=== PATIENT | male | born 1995 | race Hispanic/Latino ===

== ENCOUNTER 2023-02-16 03:47 | Emergency (ER) | payer SELFPAY ==
[2023-02-16] MEDS ORDERED: NA CHLORIDE 0.9% 1,000 ML ONE (05:02)
[2023-02-16] MEDS ORDERED: DICYCLOMINE HCL 20 MG/2 ML AMP IM ONE (05:02)
[2023-02-16] MEDS ORDERED: MORPHINE 4 MG/ML SYR ONE (05:02)
[2023-02-16] MEDS ORDERED: KETOROLAC 30 MG/ML INJ ONE (05:02)
[2023-02-16] MEDS ORDERED: ONDANSETRON 4 MG/2 ML VIAL ONE (05:02)
[2023-02-16 05:47] LABS: Hematocrit 41.8 % (39.6-49.0); Lymphocytes % 13.9 % (15.3-44.8); MCV 89.6 fL (80-100); MPV 8.2 fL (7.6-11.3); RBC Red Blood Cell Count 4.66 M/uL (4.33-5.43)
[2023-02-16 05:52] LABS: Albumin 3.4 g/dL (3.4-5.0); Bilirubin Total 0.4 mg/dL (0.2-1.0); Potassium 3.8 mEq/L (3.5-5.1); Protein, Total 7.3 g/dL (6.4-8.2)
--- NOTE | 2023-02-16 07:17 | RAD REPORT ---
EXAM DESCRIPTION: US - Abdomen Exam Limited - 02/16/2023 7:00 am CLINICAL HISTORY: ABD PAIN COMPARISON: <Comparisons> FINDINGS: The gallbladder demonstrates several shadowing gallstones. No pericholecystic fluid or gal lbladder wall thickening. The common bile duct is normal measuring 5 mm. The liver demonstrates no findings of intrahepatic biliary dilatation. IMPRESSION: Cholelithiasis. Upper limit of normal for age common duct. MRCP may be useful for further evaluation.
--- NOTE | 2023-02-16 07:35 | ER ---
Nurse's Notes [facility] Name: Virginia Brooks Age: 27 yrs Sex: Male : 1995 Arrival Date: 02/16/2023 Time: 03:47 Bed 20 Private MD: Diagnosis: Cholelithiasis, without acute cholecystitis. Biliary colic Presentation: 02/16 04:40 Chief complaint: Patient states: UPPER ABD PAIN AND NAUSEA STARTED 2 HRS AGO. jj7 Coronavirus screen: At this time, the client does not indicate any symptoms associated with coronavirus-19. Ebola Screen: No symptoms or risks identified at this time. 04:40 Method Of Arrival: Ambulatory jj7 06:57 Initial Sepsis Screen: Does the patient meet any 2 criteria? No. Patient's initial as6 sepsis screen is negative. Does the patient have a suspected source of infection? No. Patient's initial sepsis screen is negative. Risk Assessment: Do you want to hurt yourself or someone else? Patient reports no desire to harm self or others. Onset of symptoms was February 16, 2023. 06:57 Acuity: ALEXA 3 as6 Triage Assessment: 04:40 General: Appears in no apparent distress. uncomfortable, Behavior is cooperative, jj7 appropriate for age. Pain: Complains of pain in abdomen Pain radiates to right upper quadrant. GI: Reports upper abdominal pain, nausea. Historical: - Allergies: 08:13 No Known Allergies; ph - PMHx: 08:13 None; ph - Immunization history:: Adult Immunizations unknown. - Social history:: Patient/guardian denies using alcohol, street drugs, IV drugs, caffeine, over the counter diet medications, tobacco products, Smoking status: unknown. - Family history:: not pertinent. Screenin:03 [facility] ED Fall Risk Assessment (Adult) History of falling in the last 3 months, jj7 including since admission No falls in past 3 months (0 pts) Confusion or Disorientation No (0 pts) Intoxicated or Sedated No (0 pts) Impaired Gait No (0 pts) Mobility Assist Device Used No (0 pt) Altered Elimination No (0 pt) Score/Fall Risk Level 0 - 2 = Low Risk Maintained a safe environment. Abuse screen: Denies threats or abuse. Nutritional screening: No deficits noted. Tuberculosis screening: No symptoms or risk factors identified. Assessment: 04:45 Reassessment: SEE TRIAGE ASSESSMENT. jj7 07:12 Reassessment: PT REPORT GIVEN TO MARCI ALANIZ. jj7 08:13 Reassessment: Patient appears in no apparent distress at this time. Patient and/or ph family updated on plan of care and expected duration. Pain level reassessed. Patient is alert, oriented x 3, equal unlabored respirations, skin warm/dry/pink. Pt d/c home w/ SO, instructed to follow up w/ surgeon. Vital Signs: 04:40 BP 124 / 55; Pulse 62; Resp 20; Temp 98; Pulse Ox 99% ; Pain 8/10; jj7 05:40 BP 90 / 64; Pulse 63; Resp 17; Pulse Ox 96% ; jj7 06:40 BP 116 / 73; Pulse 56; Resp 17; Pulse Ox 94% ; jj7 04:40 Pain Scale: Adult j7 ED Course: 03:57 Patient arrived in ED. ag3 04:39 Britney Scott RN is Primary Nurse. jj7 04:40 Devan Fleming MD is Attending Physician. sp4 04:40 Arm band placed on right wrist. Patient placed in an exam room, on a stretcher. jj7 05:03 Patient has correct armband on for positive identification. Bed in low position. Call j7 light in reach. Side rails up X2. Adult w/ patient. 05:03 No provider procedures requiring assistance completed. jj7 05:05 Inserted saline lock: 20 gauge in right antecubital area, using aseptic technique. jj7 Blood collected. 05:57 Warm blanket given. jj7 06:37 CT Abd/Pelvis - IV Contrast Only In Process Unspecified. EDMS 06:57 Triage completed. as6 07:02 Abdomen Limited US In Process Unspecified. EDMS 07:34 Wil Reyes MD is Referral Physician. sp4 08:03 Marci Sanchez RN is Primary Nurse. ph 08:14 IV discontinued, intact, bleeding controlled, No redness/swelling at site. Pressure ph dressing applied. Administered Medications: 05:08 Drug: NS 0.9% IV 1000 ml Route: IV; Rate: 1 bolus; Site: right antecubital; jj7 05:08 Drug: morphine IVP or IV 4 mg Route: IVP; Infused Over: 4 mins; Site: right antecubital;jj7 05:08 Drug: Ketorolac IVP 30 mg Route: IVP; Site: right antecubital; jj7 05:14 Drug: Ondansetron IVP 4 mg Route: IVP; Site: right antecubital; jj7 05:15 Drug: Dicyclomine IM 20 mg Route: IM; Site: right deltoid; jj7 Outcome: 07:35 Discharge ordered by MD. gonzales 08:14 Discharged to home ambulatory, with significant other. ph 08:14 Condition: good 08:14 Discharge instructions given to patient, Instructed on discharge instructions, follow up and referral plans. medication usage, Demonstrated understanding of instructions, follow-up care, medications, Prescriptions given X 2. 08:14 Patient left the ED. ph Signatures: Dispatcher [employer] EDMS Marci Sanchez RN RN ph Tenisha Calloway3 Price Foss RN RN as6 Britney Scott RN RN jj7 Devan Fleming MD MD sp4
--- NOTE | 2023-02-16 07:35 | EDPHYS ---
Physician Documentation [facility] Name: Virginia Brooks Age: 27 yrs Sex: Male : 1995 Arrival Date: 02/16/2023 Time: 03:47 Bed 20 Private MD: ED Physician Dvean Fleming HPI: 02/16 04:40 This 27 yrs old Male presents to ER via Unassigned with complaints of sp4 Abdominal Pain. 04:45 Acute onset abdominal pain several hours ago upper abdomen in the right abdomen. sp4 Patient states he developed acute onset abdominal pain that is mostly in the upper abdomen associated with nausea without diarrhea or constipation. Patient has a history of gastric sleeve surgery but no other surgeries. Patient describes pain as moderate to severe. Pain is constant and increasing.. Historical: - Allergies: 08:13 No Known Allergies; ph - PMHx: 08:13 None; ph - Immunization history:: Adult Immunizations unknown. - Social history:: Patient/guardian denies using alcohol, street drugs, IV drugs, caffeine, over the counter diet medications, tobacco products, Smoking status: unknown. - Family history:: not pertinent. ROS: 04:45 Constitutional: Negative for fever, chills, and weight loss, Eyes: Negative for injury, sp4 pain, redness, and discharge, ENT: Negative for injury, pain, and discharge, Neck: Negative for injury, pain, and swelling, Cardiovascular: Negative for chest pain, palpitations, and edema, Respiratory: Negative for shortness of breath, cough, wheezing, and pleuritic chest pain, Abdomen/GI: Negative for nausea, vomiting, diarrhea, and constipation, positive for abdominal pain Back: Negative for injury and pain, : Negative for injury, bleeding, discharge, and swelling, MS/Extremity: Negative for injury and deformity, Skin: Negative for injury, rash, and discoloration, Neuro: Negative for headache, weakness, numbness, tingling, and seizure, Psych: Negative for depression, anxiety, Allergy/Immunology: Negative for hives, rash, and allergies Endocrine: Negative for neck swelling, polydipsia, polyuria, polyphagia, and weight changes Hematologic/Lymphatic: Negative for swollen nodes, abnormal bleeding, and unusual bruising Exam: 04:45 Constitutional: This is a well developed, well nourished patient who is awake, alert, sp4 and in no acute distress. Head/Face: Normocephalic, atraumatic. Eyes: Pupils equal round and reactive to light, extra-ocular motions intact. Lids and lashes normal. Conjunctiva and sclera are not injected. Cornea within normal limits. Periorbital areas with no swelling, redness, or edema. ENT: Nares patent. No nasal discharge, no septal abnormalities noted. Tympanic membranes are normal and external auditory canals are clear. Oropharynx with no redness, swelling, or masses, exudates, or evidence of obstruction, uvula midline. Mucous membranes moist. Neck: Trachea midline, no thyromegaly or masses palpated, and no cervical lymphadenopathy. Supple, full range of motion without nuchal rigidity, or vertebral point tenderness. No Meningismus. Chest/axilla: Normal chest wall appearance and motion. Nontender with no deformity. No lesions are appreciated. Cardiovascular: Regular rate and rhythm with a normal S1 and S2. No gallops, murmurs, or rubs. Normal PMI, no JVD. No pulse deficits. Respiratory: Lungs have equal breath sounds bilaterally, clear to auscultation and percussion. No rales, rhonchi or wheezes noted. No increased work of breathing, no retractions or nasal flaring. Abdomen/GI: Soft, obese abdomen, moderate to severe tenderness epigastric right upper quadrant location, normal active bowel sounds, positive rebound, nondistended abdomen no rigidity Back: No spinal tenderness. No costovertebral tenderness. Skin: Warm, dry with normal turgor. Normal color with no rashes, no lesions, and no evidence of cellulitis. MS/ Extremity: Pulses equal, no cyanosis. Neurovascular intact. Full, normal range of motion. Neuro: Awake and alert, GCS 15, oriented to person, place, time, and situation. Cranial nerves II-XII grossly intact. Motor strength 5/5 in all extremities. Sensory grossly intact. Psych: Awake, alert, with orientation to person, place and time. Behavior, mood, and affect are within normal limits Vital Signs: 04:40 BP 124 / 55; Pulse 62; Resp 20; Temp 98; Pulse Ox 99% ; Pain 8/10; jj7 05:40 BP 90 / 64; Pulse 63; Resp 17; Pulse Ox 96% ; jj7 06:40 BP 116 / 73; Pulse 56; Resp 17; Pulse Ox 94% ; jj7 04:40 Pain Scale: Adult j7 MDM: 04:45 Patient medically screened. sp4 07:30 Differential Diagnosis sepsis, Appendicitis, acute cholecystitis. Data reviewed: vital sp4 signs, nurses notes, lab test result(s), amylase and lipase, CBC, drug level(s), electrolytes, hepatic panel, radiologic studies, CT scan, ultrasound. Consideration of Admission/Observation Escalation of care including admission/observation considered. ED course: Patient CT revealed no acute abdominopelvic findings, revealed hepatomegaly, distended gallbladder, sleeve gastrectomy changes, normal appendix. Patient had mild elevation in AST, ALT, and essentially normal alk phos, normal lipase. Normal bilirubin,. Ultrasound revealed cholelithiasis, several shadowing gallstones, no pericholecystic fluid, no gallbladder wall thickening, and bile duct 5 mm. Patient improved after medications in ER, patient will be advised to see general surgeon for outpatient laparoscopic cholecystectomy. . 02/16 04:47 Order name: COVID-19 SARS RT PCR sp4 02/16 05:32 Order name: Comprehensive Metabolic Panel; Complete Time: 07:21 EDMS 02/16 05:32 Order name: Lipase; Complete Time: 07:21 EDMS 02/16 05:32 Order name: CBC with Automated Diff; Complete Time: 07:21 EDMS 02/16 05:32 Order name: SARS-COV-2 RT PCR; Complete Time: 07:21 EDMS 02/16 04:48 Order name: Abdomen Limited US; Complete Time: 07:21 sp4 02/16 04:48 Order name: CT Abd/Pelvis - IV Contrast Only sp4 02/16 04:48 Order name: IV Saline Lock; Complete Time: 05:13 sp4 02/16 04:48 Order name: Labs collected and sent; Complete Time: 05:13 sp4 Administered Medications: 05:08 Drug: NS 0.9% IV 1000 ml Route: IV; Rate: 1 bolus; Site: right antecubital; j7 05:08 Drug: morphine IVP or IV 4 mg Route: IVP; Infused Over: 4 mins; Site: right antecubital;jj7 05:08 Drug: Ketorolac IVP 30 mg Route: IVP; Site: right antecubital; jj7 05:14 Drug: Ondansetron IVP 4 mg Route: IVP; Site: right antecubital; jj7 05:15 Drug: Dicyclomine IM 20 mg Route: IM; Site: right deltoid; jj7 Disposition Summary: 02/16/23 07:35 Discharge Ordered Location: Home sp4 Condition: Stable sp4 Diagnosis - Cholelithiasis, without acute cholecystitis. Biliary colic sp4 Followup: sp4 - With: Wil Reyes MD - When: 7 - 10 days - Reason: Recheck today's complaints Discharge Instructions: - Discharge Summary Sheet sp4 - Cholelithiasis, [id number] sp4 Forms: - Family Work Release ph - Thank You Letter ph - Medication Reconciliation Form sp4 Prescriptions: - naproxen sodium 500 mg Oral Tablet, ER Multiphase 24 hr - take 1 tablet by ORAL route every 12 hours PRN pain; 30 tablet; Refills: 0, sp4 Product Selection Permitted - Zofran 4 mg Oral Tablet - take 1 tablet by ORAL route every 6 hours As needed PRN nausea; 30 tablet; sp4 Refills: 0, Product Selection Permitted Signatures: Dispatcher [employer] EDMarci Moulton RN RN Britney Brice RN RN jj7 Devan Fleming MD MD sp4 Corrections: (The following items were deleted from the chart) 06:09 05:29 Abdomen ordered. EDMS EDMS 06:30 06:05 CBC+H.LAB.BRZ ordered. EDMS EDMS 06:30 06:05 COMPREHENSIVE METABOLIC PANEL+C.LAB.BRZ ordered. EDMS EDMS 06:30 06:05 LIPASE+C.LAB.BRZ ordered. EDMS EDMS
[2023-02-16 08:37] VITALS: TEMP 98
[2023-02-16 08:42] VITALS: BP 116/73; O2SAT 94
--- NOTE | 2023-02-16 16:00 | RAD REPORT ---
EXAM DESCRIPTION: Abdomen Pelvis W Contrast CLINICAL HISTORY: 27 years Male ABD PAIN COMPARISON: None TECHNIQUE: CT of the abdomen and pelvis with intravenous contrast. All CT scans at this facility use dose modulation, iterative reconstruction, and/or weight based dosi ng when appropriate to reduce radiation dose to as low as reasonably achievable. FINDINGS: Lower thorax: Bibasilar scarring versus atelectasis. Abdomen: Stomach: Sleeve gastrectomy changes. Liver: No focal lesions. Enlarged. No intrahepatic ductal distention. Gallbladder: Moderately distended. Pancreas: Within normal limits Spleen: Within normal limits Right kidney: No hydronephrosis. No focal lesion. Left kidney: No hydronephrosis. No focal lesion. Adrenal glands: Within normal limits Vascular structures: Within normal limits Nodes: No lymphadenopathy by size criteria Pelvis: Small bowel: No significant distention. Appendix: Within normal limits Colon: No distention or acute pericolonic edema. Peritoneum: No free intraperitoneal fluid or air. Bones: No acute bone findings. Bladder: Underdistended, limiting evaluation. Reproductive organs: No acute findings. IMPRESSION: 1. No acute abdominopelvic findings. 2. Hepatomegaly. Electronically signed by: Randall Walker MD 02/16/2023 6:48 AM CDT Due to temporary technical issues with the PACS/Fluency reporting system, reports are being signed by the in house radiologists without review as a courtesy to insure prompt reporting. The interpreting radiologist is fully responsible for the content of the report.
== END 2023-02-16 08:14 | disposition home or self-care (01) ==
LOC: ER 03:47
DX: K80.20 Calculus of gallbladder without cholecystitis without obstruction (principal); K80.50 Calculus of bile duct without cholangitis or cholecystitis without obstruction
CPT/HCPCS: 36415; 74177; 76705; 80053; 83690; 85025; 96372; 96374; 96375; 99284; J0500; J2405; J7030; Q9967; U0003

== ENCOUNTER 2023-03-10 15:26 | Emergency (ER) | payer SELFPAY ==
--- OUTSIDE RECORDS SUMMARY | 2023-03-10 15:28 | XMS REPORT | Continuity of Care Document ---
:1995 Author Organization [facility] t Address [address] [place] [id number] Care Team Providers Name Role Phone Unavailable Unavailable Unavailable Problems This patient has no known problems. Allergies, Adverse Reactions, Alerts This patient has no known allergies or adverse reactions. Medications This patient has no known medications. Procedures This patient has no known procedures. Encounters Start End Encounter Admission Attending Care Care Encounter Source Date/Time Date/Time Type Type Clinicians Facility Department ID 2022-08-26 2022-08-26 Outpatient [facility] [id number] Pili Carcamo 14:26:13 14:26:[address] [place] [address] Results This patient has no known results.
[2023-03-10 16:48] LABS: Hematocrit 45.5 % (39.6-49.0); Lymphocytes % 7.1 % (15.3-44.8); MCV 89.5 fL (80-100); MPV 7.8 fL (7.6-11.3); RBC Red Blood Cell Count 5.08 M/uL (4.33-5.43)
[2023-03-10 17:02] LABS: Albumin 3.8 g/dL (3.4-5.0); Bilirubin Total 1.3 mg/dL (0.2-1.0); Potassium 3.7 mEq/L (3.5-5.1)
--- NOTE | 2023-03-10 17:21 | RAD REPORT ---
EXAM DESCRIPTION: US - Abdomen Exam Limited - 03/10/2023 5:01 pm CLINICAL HISTORY: ruq pain COMPARISON: Abdomen Exam Limited dated 02/16/2023 TECHNIQUE: Sonographic grayscale and color flow images of the right upper abdominal quadrant were obtained. FINDINGS: The gallbladder demonstrates layering sludge and small echogenic calculi. No pericholecyst ic fluid or gallbladder wall thickening. The common bile duct is prominent, measuring up to 6 mm. The liver demonstrates no findings of intrahepatic biliary dilatation. IMPRESSION: Mildly prominent common bile duct, up to 6 millimeter in caliber. Gallstones and sludge. No sonographic findings to suggest acute cholecystitis.
[2023-03-10] MEDS ORDERED: CEFTRIAXONE 1000 MG/VIAL ONE (17:51)
[2023-03-10] MEDS ORDERED: METRONIDAZOLE 500mg IVPB 500 MG/100 ML BAG IV ONE (17:51)
--- NOTE | 2023-03-10 18:04 | EDPHYS ---
Physician Documentation [facility] Name: Virginia Brooks Age: 27 yrs Sex: Male : 1995 Arrival Date: 03/10/2023 Time: 15:26 Bed 16 Private MD: ED Physician Nate Rizvi HPI: 03/10 15:43 This 27 yrs old Male presents to ER via Unassigned with complaints of bs3 Abdominal Pain. 15:43 27-year-old male history of gallstones presents with epigastric pain for approximately bs3 3 days it did get better just prior to arrival however it has been pretty persistent over the last 3 days he notes similar pain earlier this month when he was diagnosed with gallstones he has not been able to follow-up with the surgeon due to lack of insurance he denies fevers chills cough shortness of breath he was taking Naprosyn and Advil for the pain it is sharp pain it radiates toward both sides of his upper abdomen does not radiate to his back or lower abdomen its not ripping or tearing. Historical: - Allergies: 15:44 No Known Allergies; mb9 - Home Meds: 15:44 None [Active]; mb9 - PMHx: 15:44 Gallstones; mb9 - PSHx: 15:44 Gastric Sleeve; mb9 - Immunization history:: Adult Immunizations up to date. - Social history:: Smoking status: Patient denies any tobacco usage or history of. ROS: 15:43 Constitutional: Negative for fever, chills bs3 15:43 All other systems are negative. Exam: 15:43 Constitutional: This is a well developed, well nourished patient who is awake, alert, bs3 and in no acute distress. Head/Face: Normocephalic, atraumatic. Eyes: Pupils equal round and reactive to light, extra-ocular motions intact. Lids and lashes normal. ENT: mmm, no posterior phyarngeal erythema Neck: Trachea midline, no thyromegaly, no neck stiffness Chest/axilla: Normal chest wall appearance and motion. Nontender with no deformity. No lesions are appreciated. Cardiovascular: Regular rate and rhythm with a normal S1 and S2. symmetric pulses in upper extremities Respiratory: Lungs have equal breath sounds bilaterally, clear to auscultation, no respiratory distress Abdomen/GI: Soft, non-tender, no rebound or guarding Skin: Warm, dry with normal turgor. Normal color with no rashes, no lesions, and no evidence of cellulitis. MS/ Extremity: Pulses equal, no cyanosis. Neurovascular intact. Full, normal range of motion. Neuro: Awake and alert, GCS 15, oriented to person, place, time, and situation. Cranial nerves II-XII grossly intact. Motor strength 5/5 in all extremities. Sensory grossly intact. Vital Signs: 15:42 BP 117 / 75; Pulse 76; Resp 18; Temp 97.9; Pulse Ox 100% ; Weight 140.16 kg; Height 5 mb9 ft. 10 in. ; Pain 0/10; 20:32 BP 107 / 71; Pulse 61; Resp 18 S; Pulse Ox 100% on R/A; as6 15:42 Body Mass Index 44.34 (140.16 kg, 177.8 cm) mb9 15:42 Pain Scale: Adult mb9 MDM: 15:35 Patient medically screened. bs3 15:43 Data reviewed: vital signs, nurses notes. ED course: Patient with epigastric pain for 3 bs3 days now improving will evaluate for pancreatitis, cholecystitis, possible gastritis, peptic ulcer disease I reviewed his ultrasound from 02/16/2023 which does show gallstones without wall thickening we will repeat ultrasound patient does not want pain medicine at this point in time. 17:47 ED course: Patient with cholelithiasis and new elevated LFTs with a CBD of 6 I bs3 discussed with Dr. Mcgovern who recommended patient needs ERCP or likely ERCP I reached out to Dr. Donis who cannot do this procedure and recommended transfer, will start on antibiotics and initiate transfer. 18:40 ED course: Dr. Parisi from [facility] accepted pt. bs3 03/10 15:43 Order name: CBC with Diff; Complete Time: 17:33 bs3 03/10 15:43 Order name: CMP; Complete Time: 17:33 bs3 03/10 15:43 Order name: Lipase; Complete Time: 17:33 bs3 03/10 18:05 Order name: SARS RAPID sp 03/10 15:43 Order name: US Abdomen Limited; Complete Time: 17:33 bs3 03/10 15:43 Order name: IV Saline Lock; Complete Time: 16:37 bs3 03/10 15:43 Order name: Labs collected and sent; Complete Time: 16:37 bs3 Administered Medications: 17:45 Drug: Rocephin IV 1 grams Route: IV; Rate: 1 bolus; Site: left antecubital; ko1 18:29 Follow up: Response: No adverse reaction ko1 18:30 Follow up: IV Status: Completed infusion; IV Intake: 10ml ko1 18:07 Drug: metroNIDAZOLE IVPB 500 mg Volume: 100 ml; Route: IVPB; Rate: 200 ml/hr; Infused ko1 Over: 30 mins; Site: left antecubital; 18:30 Follow up: IV Status: Completed infusion; IV Intake: 100ml ko1 18:09 Drug: NS 0.9% IV 1000 ml Route: IV; Rate: 125 ml/hr; Site: left antecubital; ko1 18:30 Follow up: Response: No adverse reaction ko1 20:54 Follow up: Response: No adverse reaction; IV Status: Infusion continued upon transfer; as6 IV Intake: 300ml Disposition Summary: 03/10/23 18:04 Transfer Ordered Transfer Location: [facility] bs3 Reason: Higher level of care bs3 Condition: Stable bs3 Problem: new bs3 Symptoms: are unchanged bs3 Accepting Physician: st cummins(03/10/23 20:55) as6 Diagnosis - Calculus of gallbladder without cholecystitis with obstruction bs3 Forms: - Medication Reconciliation Form bs3 - SBAR form bs3 Signatures: Dispatcher [employer] Price Ann RN RN as6 Nate Rizvi MD MD bs3 Liliana Dexter RN RN ko1 Carol العلي RN RN mb9 Corrections: (The following items were deleted from the chart) 20:55 18:04 [facility] bs3 as6
--- NOTE | 2023-03-10 18:04 | ER ---
Nurse's Notes [facility] Name: Virginia Brooks Age: 27 yrs Sex: Male : 1995 Arrival Date: 03/10/2023 Time: 15:26 Bed 16 Private MD: Diagnosis: Calculus of gallbladder without cholecystitis with obstruction Presentation: 03/10 15:42 Chief complaint: Patient states: "I've been having real bad abdominal pain for the past mb9 3 days. Last month I came in for the same thing and had gallstones. It's tender to touch on my right side and middle. The pain is similar to last time when I had gallstones". Coronavirus screen: Vaccine status: Patient reports receiving the 2nd dose of the covid vaccine. Ebola Screen: No symptoms or risks identified at this time. Initial Sepsis Screen: Does the patient meet any 2 criteria? No. Patient's initial sepsis screen is negative. Does the patient have a suspected source of infection? No. Patient's initial sepsis screen is negative. Risk Assessment: Do you want to hurt yourself or someone else? Patient reports no desire to harm self or others. Onset of symptoms was March 10, 2023. 15:42 Method Of Arrival: Ambulatory mb9 15:42 Acuity: ALEXA 3 mb9 Triage Assessment: 15:45 General: Appears in no apparent distress. Behavior is calm, cooperative. Pain: mb9 Complains of pain in abdomen Pain does not radiate. Neuro: Level of Consciousness is awake, alert, obeys commands, Oriented to person, place, time, situation, Appropriate for age. Respiratory: Airway is patent Respiratory effort is even, unlabored, Respiratory pattern is regular, symmetrical. GI: Abdomen is obese, Bowel sounds present X 4 quads. Abd is soft Abdomen is tender to palpation in right upper quadrant and right lower quadrant Reports nausea, Patient currently denies diarrhea. : No signs and/or symptoms were reported regarding the genitourinary system. Derm: Skin is pink, warm \\T\\ dry. Musculoskeletal: Range of motion: intact in all extremities. Historical: - Allergies: 15:44 No Known Allergies; mb9 - Home Meds: 15:44 None [Active]; mb9 - PMHx: 15:44 Gallstones; mb9 - PSHx: 15:44 Gastric Sleeve; mb9 - Immunization history:: Adult Immunizations up to date. - Social history:: Smoking status: Patient denies any tobacco usage or history of. Screenin:30 [facility] ED Fall Risk Assessment (Adult) History of falling in the last 3 months, ko1 including since admission No falls in past 3 months (0 pts) Confusion or Disorientation No (0 pts) Intoxicated or Sedated No (0 pts) Impaired Gait No (0 pts) Mobility Assist Device Used No (0 pt) Altered Elimination No (0 pt) Score/Fall Risk Level 0 - 2 = Low Risk Oriented to surroundings, Maintained a safe environment, Educated pt \\T\\ family on fall prevention, incl call for assistance when getting out of bed, Assessed \\T\\ reinforced patient's understanding of fall precautions, Provided non-skid footwear, Hourly rounding (assess needs \\T\\ fall precautionary measures) done, Used ambulatory aids as needed (educated on \\T\\ assisted with), Used gait belt as appropriate. Abuse screen: Denies threats or abuse. Denies injuries from another. Nutritional screening: No deficits noted. Tuberculosis screening: No symptoms or risk factors identified. Assessment: 15:47 Reassessment: see triage assessment. mb9 20:31 General: attempted to call report. no answer . as6 Vital Signs: 15:42 BP 117 / 75; Pulse 76; Resp 18; Temp 97.9; Pulse Ox 100% ; Weight 140.16 kg; Height 5 mb9 ft. 10 in. ; Pain 0/10; 20:32 BP 107 / 71; Pulse 61; Resp 18 S; Pulse Ox 100% on R/A; as6 15:42 Body Mass Index 44.34 (140.16 kg, 177.8 cm) mb9 15:42 Pain Scale: Adult mb9 ED Course: 15:35 Patient arrived in ED. im 15:35 Nate Rizvi MD is Attending Physician. bs3 15:44 Triage completed. mb9 15:44 Arm band placed on. mb9 16:30 Patient has correct armband on for positive identification. Bed in low position. Call ko1 light in reach. Side rails up X 1. Pulse ox on. NIBP on. Door closed. Noise minimized. Lights dimmed. Warm blanket given. 16:30 No provider procedures requiring assistance completed. ko1 16:31 Liliana Dexter, KATTY is Primary Nurse. ko1 16:37 CBC with Diff Sent. bc6 16:37 CMP Sent. bc6 16:37 Lipase Sent. bc6 16:37 Inserted saline lock: 20 gauge in left antecubital area, using aseptic technique. bc6 17:03 US Abdomen Limited In Process Unspecified. EDMS 18:[address] [facility] for Initial transfer. ah1 18:10 SARS RAPID Sent. ko1 18:37 physician approval by Marcos Ferrer. ah1 20:09 Hospital bed approval keshia Noel RN. ah1 20:37 Contacted [facility] for transfer. 1 20:54 EMS arrived. ah1 20:55 Patient transferred, IV remains in place. as6 Administered Medications: 17:45 Drug: Rocephin IV 1 grams Route: IV; Rate: 1 bolus; Site: left antecubital; ko1 18:29 Follow up: Response: No adverse reaction ko1 18:30 Follow up: IV Status: Completed infusion; IV Intake: 10ml ko1 18:07 Drug: metroNIDAZOLE IVPB 500 mg Volume: 100 ml; Route: IVPB; Rate: 200 ml/hr; Infused ko1 Over: 30 mins; Site: left antecubital; 18:30 Follow up: IV Status: Completed infusion; IV Intake: 100ml ko1 18:09 Drug: NS 0.9% IV 1000 ml Route: IV; Rate: 125 ml/hr; Site: left antecubital; ko1 18:30 Follow up: Response: No adverse reaction ko1 20:54 Follow up: Response: No adverse reaction; IV Status: Infusion continued upon transfer; as6 IV Intake: 300ml Medication: 16:30 VIS not applicable for this client. ko1 Intake: 18:30 IV: 100ml; Total: 100ml. ko1 18:30 IV: 10ml; Total: 110ml. ko1 20:54 IV: 300ml; Total: 410ml. as6 Outcome: 18:04 ER care complete, transfer ordered by bs3 20:54 Transferred by ground EMS to [facility], Transfer form completed. as6 X-rays sent w/ patient. 20:54 Condition: stable 20:54 Instructed on the need for transfer. 20:55 Patient left the ED. as6 Signatures: Dispatcher [employer] EDMS Slawson, [place], RN RN as6 Nate Rizvi MD MD bs3 Liliana Dexter RN RN ko1 Carol العلي RN RN mb9 Julieth Greenberg6 Luke Díaz [facility] Cynthia Porras Corrections: (The following items were deleted from the chart) 21:00 18:37 physician approval [place] [id number]
[2023-03-10] MEDS ORDERED: NA CHLORIDE 0.9% 1,000 ML ONE (18:19)
[2023-03-10 18:45] LABS: SARS-CoV-2 Antigen Rapid Res Negative (Negative)
[2023-03-10 21:25] VITALS: O2SAT 100
[2023-03-10 21:27] VITALS: BP 117/75; TEMP 97.9
== END 2023-03-10 20:55 | disposition short-term general hospital (02) ==
LOC: ER 15:26
DX: K80.21 Calculus of gallbladder without cholecystitis with obstruction (principal)
CPT/HCPCS: 36415; 76705; 80053; 83690; 85025; 87811; 96361; 96365; 99285; J0696; J7030